=== PATIENT | male | born 1965 | race Caucasian/White ===

== ENCOUNTER 2017-06-18 23:39 | Emergency (ER) | payer OTHER ==
[2017-06-19 00:20] VITALS: BP 169/117; PULSE 112; TEMP 98.4; BMI 29.1
--- NOTE | 2017-06-19 00:40 | PDOC ---
History of Present Illness - General Chief Complaint: Oral Ulcers Stated Complaint: Abscess Boil Time Seen by Provider: 06/19/17 00:17 History Source: Patient Exam Limitations: No Limitations - History of Present Illness Initial Comments: 06/19/17 00:38 Best Contact: Pmhx: Pshx: Allergies: NO BLOOD THINNERS 51-year-old male presents to the emergency department with his complaining of bleeding to the gums on the right lower second molar 2 hours after eating soup and a sandwich. Patient states he is not on any blood thinners. Patient denies pain, nausea/vomiting, fever/chills. Patient denies any other complaints. Timing/Duration: 1-3 hours Past History - Past Medical History Allergies/Adverse Reactions: Allergies Allergy/AdvReac Type Severity Reaction Status Date / Time No Known Allergies Allergy Verified 06/19/17 00:17 Home Medications: Ambulatory Orders Cephalexin [Keflex] 500 mg PO BID #9 capsule 06/19/17 - Suicide/Smoking/Psychosocial Hx Smoking History: Never smoked Have you smoked in the past 12 months: No Information on smoking cessation initiated: No Hx Alcohol Use: No Drug/Substance Use Hx: No Review of Systems - Review of Systems Able to Perform ROS?: Yes Comments:: 06/19/17 00:36 CONSTITUTIONAL: Absent: fever, chills, diaphoresis, generalized weakness, malaise, loss of appetite HEENT: +right lower 2nd molar gum bleeding Absent: rhinorrhea, nasal congestion, throat pain, throat swelling, difficulty swallowing, mouth swelling, ear pain, eye pain, visual Changes SKIN: Absent: rash, itching, pallor HEMATOLOGIC/IMMUNOLOGIC: Absent: easy bleeding, easy bruising, lymphadenopathy, frequent infections ENDOCRINE: Absent: unexplained weight gain, unexplained weight loss, heat intolerance, cold intolerance Is the patient limited Green[place]ic proficient: No *Physical Exam - Vital Signs Last Vital Signs Temp Pulse Resp BP Pulse Ox 98.4 F 112 H 14 169/117 97 06/19/17 00:18 06/19/17 00:18 06/19/17 00:18 06/19/17 00:18 06/19/17 00:18 - Physical Exam Comments: 06/19/17 00:37 GENERAL: Well developed, well nourished. Awake and alert. No acute distress. HEENT: Right 2nd molar lower gum abrasion +bleeding Normocephalic, atraumatic. PERRLA, EOMI. No conjunctival pallor. Sclera are non- icteric. Moist mucous membranes. Oropharynx is clear. SKIN: Warm and dry. Normal capillary refill. No rashes. No jaundice. *DC/Admit/Observation/Transfer Diagnosis at time of Disposition: Abrasion of gum Qualifiers: Encounter type: initial encounter Qualified Code(s): S00.512A - Abrasion of oral cavity, initial encounter - Discharge Dispostion Disposition: HOME Condition at time of disposition: Stable Admit: No - Prescriptions Prescriptions: Cephalexin [Keflex] 500 mg PO BID #9 capsule - Referrals Referrals: Linnette Jordan [Primary Care Provider] - Jens Wolf MD [Staff Physician] - - Patient Instructions Printed Discharge Instructions: DI for Abrasion Additional Instructions: Antibiotics as prescribed until complete Return to the ER for severe/persistent/worsening symptoms Follow up with the dentist [facility] [phone] [place]: [phone] Sunday through Sunday: 4 PM to 9 PM Sunday and Sunday 9 AM to 5 PM - Post Discharge Activity
[2017-06-19] MEDS ORDERED: CEPHALEXIN MONOHYDRATE 500 MG CAPSULE (UD) PO ONE (00:56)
[2017-06-19] MEDS ORDERED: CEPHALEXIN MONOHYDRATE 500 MG CAPSULE (UD) ONE (00:59)
== END 2017-06-19 01:03 | disposition home or self-care (01) ==
LOC: JERFT 23:39 → JER 23:39 → JERFT 06-19 01:03
DX: S00.512A Abrasion of oral cavity, initial encounter (principal); X58.XXXA Exposure to other specified factors, initial encounter; Y93.89 Activity, other specified; Y92.89 Other specified places as the place of occurrence of the external cause; Y99.8 Other external cause status
CPT/HCPCS: 99281-25

== ENCOUNTER 2023-05-10 14:19 | Observation (INO) | payer OTHER ==
[2023-05-10] MEDS ORDERED: ONDANSETRON 4 MG/2 ML VIAL ONE (15:00)
[2023-05-10] MEDS: FAMOTIDINE 20 MG/50 ML IVPB 20 MG/50 ML MG IVPB ONE (15:01)
[2023-05-10] MEDS: SODIUM CHLORIDE 1,000 ML IV STA (15:01)
[2023-05-10] MEDS ORDERED: FAMOTIDINE 20 MG/50 ML IVPB 20 MG/50 ML MG IVPB ONE (15:01)
[2023-05-10] MEDS: ONDANSETRON 4 MG/2 ML VIAL IVPUSH ONE (15:02)
[2023-05-10 15:05] LABS: HEMATOCRIT 35.8 % (35.4-49); HEMOGLOBIN 12.2 GM/dL (11.7-16.9); LYMPH % 14.9 % (8-40); MCH 32.2 pg (25.7-33.7); MCHC 34.2 g/dl (32.0-35.9); MEAN CELL VOLUME 94.1 fl (80-96); MEAN PLT VOLUME 8.4 fl (7.5-11.1); MONO % 6.9 % (3.8-10.2); NEUT % 76.2 % (42.8-82.8); PLATELET COUNT 190 10^3/uL (134-434); RDW 14.3 % (11.9-15.9); WHITE BLOOD COUNT 9.5 K/mm3 (4.0-10.0)
[2023-05-10] MEDS ORDERED: HYDROCHLOROTHIAZIDE 25 MG TABLET (FP) ONE (15:07)
[2023-05-10 15:08] LABS: EPI CELLS 5 /uL (0-25.1); HYALINE CASTS 1 /uL (0-3.1); PH,URINE 5.5 (5.0-8.0); URINE APPEARANCE CLEAR; URINE BILIRUBIN 2+ (NEGATIVE); URINE COLOR ORANGE; URINE GLUCOSE (UA) NEGATIVE (NEGATIVE); URINE KETONE 1+ (NEGATIVE); URINE LEUK ESTERASE 1+ (NEGATIVE); URINE NITRITE POSITIVE (NEGATIVE); URINE PROTEIN 1+ (NEGATIVE); URINE RBC 7 /uL (0-23.9); URINE WBC 9 /uL (0-25.8)
[2023-05-10] MEDS ORDERED: LISINOPRIL 20 MG TABLET ONE (15:08)
[2023-05-10 15:09] LABS: INR 1.18 (0.83-1.09); PROTHROMBIN TIME (PATIENT) 13.7 SEC (9.7-13.0)
[2023-05-10] MEDS: HYDROCHLOROTHIAZIDE 25 MG TABLET (FP) PO ONE (15:09)
[2023-05-10] MEDS: LISINOPRIL 20 MG TABLET PO ONE (15:09)
[2023-05-10 15:12] LABS: ACTIVATED PTT 28.2 SECONDS (25.2-36.5)
[2023-05-10] MEDS ORDERED: ACETAMINOPHEN INJECTION 100 ML IVPB ONE (15:25)
[2023-05-10] MEDS ORDERED: PANTOPRAZOLE 40 MG TABLET PO ONE (15:27)
[2023-05-10] MEDS: LACTATED RINGERS SOLUTION 1,000 ML/1,000 ML INFUS.BAG IV STA (15:28)
[2023-05-10] MEDS: PANTOPRAZOLE 40 MG TABLET PO ONE (15:28)
[2023-05-10] MEDS: ACETAMINOPHEN 1000 MG/100 ML BAG IVPB ONE (15:28)
[2023-05-10 15:33] LABS: POTASSIUM 3.5 mmol/L (3.5-5.1)
[2023-05-10 15:36] LABS: CALCIUM 8.3 mg/dL (8.5-10.1)
[2023-05-10 15:37] LABS: ALBUMIN 3.6 g/dl (3.4-5.0); BLOOD UREA NITROGEN 17.6 mg/dL (7-18); MAGNESIUM 1.3 mg/dL (1.8-2.4)
[2023-05-10 15:40] LABS: CREATININE 1.3 mg/dL (0.55-1.3)
[2023-05-10 15:41] LABS: BILIRUBIN,TOTAL 1.3 mg/dL (0.2-1); TOT PROT 7.3 g/dl (6.4-8.2)
[2023-05-10 15:55] LABS: URINE BACTERIA 3 /uL (0-1359)
[2023-05-10] MEDS ORDERED: MAGNESIUM SULFATE IN WATER 2 GM/50 ML IVPB IVPB ONE (16:46)
[2023-05-10] MEDS ORDERED: MAG HYDROX/AL HYDROX/SIMETH 30 ML UNIT-DOSE CUP ONE (16:46)
[2023-05-10] MEDS ORDERED: KETOROLAC TROMETHAMINE 30 MG/1 ML VIAL ONE (16:46)
[2023-05-10] MEDS: KETOROLAC TROMETHAMINE 30 MG/1 ML VIAL IVPUSH ONE (16:48)
[2023-05-10] MEDS: MAG HYDROX/AL HYDROX/SIMETH 30 ML UNIT-DOSE CUP PO ONE (16:48)
[2023-05-10] MEDS: MAGNESIUM SULFATE IN WATER 2 GM/50 ML IVPB IVPB ONE (16:56)
[2023-05-10] MEDS ORDERED: CEFTRIAXONE 1 GM/50 ML BAG ONE (17:46)
[2023-05-10] MEDS: CEFTRIAXONE 1 GM in DEXTROSE 5%-WATER - 100 ML IVPB ONE (19:00)
[2023-05-10] MEDS: CEFTRIAXONE 1,000 MG in DEXTROSE 5%-WATER - 50 ML IVPB ONE (20:10)
[2023-05-10] MEDS: DEXTROSE 5%-NORMAL SALINE 1,000 ML IV SCH (21:29)
[2023-05-11 01:29] VITALS: BMI 30.1
[2023-05-11] MEDS: ENOXAPARIN NA (PORCINE) 40 MG/0.4 ML DISP.SYRIN SQ SCH (09:43)
[2023-05-11] MEDS: LISINOPRIL 20 MG TABLET PO SCH (09:43)
[2023-05-11] MEDS: HYDROCHLOROTHIAZIDE 25 MG TABLET (FP) PO SCH (09:43)
[2023-05-11 10:18] LABS: BASO % 1.8 % (0-2.0); EOS % 2.7 % (0-4.5); HEMATOCRIT 32.5 % (35.4-49); HEMOGLOBIN 10.9 GM/dL (11.7-16.9); LYMPH % 16.4 % (8-40); MCH 32.2 pg (25.7-33.7); MCHC 33.5 g/dl (32.0-35.9); MEAN CELL VOLUME 96.4 fl (80-96); MONO % 7.5 % (3.8-10.2); NEUT % 71.6 % (42.8-82.8); PLATELET COUNT 165 10^3/uL (134-434); RBC 3.38 M/mm3 (4.00-5.60); RDW 14.1 % (11.9-15.9); WHITE BLOOD COUNT 5.3 K/mm3 (4.0-10.0)
[2023-05-11 10:28] LABS: POTASSIUM 3.2 mmol/L (3.5-5.1)
[2023-05-11 10:37] LABS: CALCIUM 8.4 mg/dL (8.5-10.1)
[2023-05-11 10:39] LABS: ALBUMIN 3.2 g/dl (3.4-5.0); MAGNESIUM 1.4 mg/dL (1.8-2.4)
[2023-05-11 10:42] LABS: CREATININE 1.1 mg/dL (0.55-1.3)
[2023-05-11 10:43] LABS: BILIRUBIN,TOTAL 0.7 mg/dL (0.2-1); TOT PROT 6.8 g/dl (6.4-8.2)
[2023-05-11] MEDS: CEFTRIAXONE 1 GM in DEXTROSE 5%-WATER - 50 ML IVPB SCH (11:08)
[2023-05-11] MEDS: SUCRALFATE 1 GM/10 ML UNIT DOSE CUPS PO SCH (17:13)
[2023-05-11] MEDS: POTASSIUM CHLORIDE ORAL LIQUID 20 MEQ/15 ML PO ONE (17:13)
[2023-05-11] MEDS: PANTOPRAZOLE SODIUM 40 MG VIAL IVPUSH SCH (22:25)
[2023-05-12 08:14] LABS: BASO % 1.3 % (0-2.0); EOS % 3.5 % (0-4.5); HEMATOCRIT 32.4 % (35.4-49); HEMOGLOBIN 11.1 GM/dL (11.7-16.9); MCH 32.8 pg (25.7-33.7); MCHC 34.3 g/dl (32.0-35.9); MEAN CELL VOLUME 95.7 fl (80-96); MEAN PLT VOLUME 8.9 fl (7.5-11.1); NEUT % 67.2 % (42.8-82.8); PLATELET COUNT 162 10^3/uL (134-434); RBC 3.39 M/mm3 (4.00-5.60); RDW 13.8 % (11.9-15.9)
[2023-05-12 08:40] LABS: POTASSIUM 3.3 mmol/L (3.5-5.1)
[2023-05-12 09:18] LABS: CALCIUM 8.2 mg/dL (8.5-10.1)
[2023-05-12 09:19] LABS: ALBUMIN 3.1 g/dl (3.4-5.0); BLOOD UREA NITROGEN 3.7 mg/dL (7-18); MAGNESIUM 1.4 mg/dL (1.8-2.4)
[2023-05-12 09:23] LABS: TOT PROT 6.6 g/dl (6.4-8.2)
[2023-05-12 09:24] LABS: BILIRUBIN,TOTAL 0.4 mg/dL (0.2-1)
[2023-05-12] MEDS: MAGNESIUM OXIDE 400 MG TABLET (FP) PO ONE (10:39)
[2023-05-12] MEDS: POTASSIUM CHLORIDE ORAL LIQUID 20 MEQ/15 ML PO ONE (10:39)
[2023-05-13 09:42] LABS: EOS % 3.3 % (0-4.5); HEMATOCRIT 34.6 % (35.4-49); HEMOGLOBIN 11.5 GM/dL (11.7-16.9); LYMPH % 17.4 % (8-40); MCH 31.9 pg (25.7-33.7); MCHC 33.2 g/dl (32.0-35.9); MEAN CELL VOLUME 96.2 fl (80-96); MEAN PLT VOLUME 8.8 fl (7.5-11.1); MONO % 7.6 % (3.8-10.2); NEUT % 70.7 % (42.8-82.8); PLATELET COUNT 166 10^3/uL (134-434); RBC 3.59 M/mm3 (4.00-5.60); RDW 14.3 % (11.9-15.9); WHITE BLOOD COUNT 5.1 K/mm3 (4.0-10.0)
[2023-05-13 10:03] LABS: CHLORIDE 105 mmol/L (98-107); POTASSIUM 3.5 mmol/L (3.5-5.1); SODIUM 140 mmol/L (136-145)
[2023-05-13 10:30] LABS: ALBUMIN 3.3 g/dl (3.4-5.0); ANION GAP 6 mmol/L (4-13); CALCIUM 8.4 mg/dL (8.5-10.1); CO2 29 mmol/L (21-32); GLUCOSE,RANDOM 146 mg/dL (74-106); MAGNESIUM 1.4 mg/dL (1.8-2.4)
[2023-05-13 10:32] LABS: SGPT/ALT 25 U/L (13-61)
[2023-05-13 10:34] LABS: BILIRUBIN,TOTAL 0.4 mg/dL (0.2-1); SGOT/AST 35 U/L (15-37)
[2023-05-13 10:35] LABS: ALK PHOS 84 U/L (45-117)
[2023-05-13 10:37] LABS: BLOOD UREA NITROGEN 2.5 mg/dL (7-18)
[2023-05-13 15:14] VITALS: RESP 18
[2023-05-13] MEDS: MAGNESIUM SULF 50% (8.12 MEQ/2 ML-1 GM VIAL) IVPB ONE (22:37)
[2023-05-13] MEDS: MAGNESIUM 2GM/50ML STERILE WATER IVPB IVPB ONE (22:37)
[2023-05-14 10:10] LABS: POTASSIUM 3.4 mmol/L (3.5-5.1)
[2023-05-14 10:18] LABS: CALCIUM 8.9 mg/dL (8.5-10.1)
[2023-05-14 10:20] LABS: ALBUMIN 3.2 g/dl (3.4-5.0); BLOOD UREA NITROGEN 3.1 mg/dL (7-18)
[2023-05-14 10:25] LABS: BILIRUBIN,TOTAL 0.3 mg/dL (0.2-1)
[2023-05-14] MEDS: POTASSIUM CHLORIDE ORAL LIQUID 20 MEQ/15 ML PO ONE (11:56)
[2023-05-14] MEDS: METOCLOPRAMIDE HCL 10 MG TABLET (FP) PO SCH (11:57)
[2023-05-14 13:06] VITALS: BP 120/72; PULSE 76; TEMP 98.9
[2023-05-14] MEDS ORDERED: metroNIDAZOLE 250 MG TABLET PO SCH (14:00)
[2023-05-14] MEDS ORDERED: PANTOPRAZOLE 40 MG TABLET PO SCH (22:00)
[2023-05-14] MEDS ORDERED: CIPROFLOXACIN 500 MG TABLET (RESTRICTED TO ID) PO SCH (22:00)
[2023-05-15 16:09] LABS: DRVVT - 34.5 sec (0.0-47.0)
== END 2023-05-14 13:52 | disposition home or self-care (01) ==
LOC: JER 14:19 → JERBED 17:02 → J8W 19:41
PROVIDERS: ADMIT Internal Medicine; ATTEND Nurse Practitioner Family
PROC: 3E033NZ Introduction of Analgesics, Hypnotics, Sedatives into Peripheral Vein, Percutaneous Approach (ICD-10-PCS; principal; 2023-05-10)
PROC: 3E03329 Introduction of Other Anti-infective into Peripheral Vein, Percutaneous Approach (ICD-10-PCS; 2023-05-10)
PROC: 3E023GC Introduction of Other Therapeutic Substance into Muscle, Percutaneous Approach (ICD-10-PCS; 2023-05-10)
PROC: 3E033GC Introduction of Other Therapeutic Substance into Peripheral Vein, Percutaneous Approach (ICD-10-PCS; 2023-05-10)
PROC: 3E0333Z Introduction of Anti-inflammatory into Peripheral Vein, Percutaneous Approach (ICD-10-PCS; 2023-05-10)
PROC: 3E0337Z Introduction of Electrolytic and Water Balance Substance into Peripheral Vein, Percutaneous Approach (ICD-10-PCS; 2023-05-10)
DX: K52.9 Noninfective gastroenteritis and colitis, unspecified (principal); I10 Essential (primary) hypertension; R10.13 Epigastric pain; R18.8 Other ascites; Z90.49 Acquired absence of other specified parts of digestive tract
CPT/HCPCS: 36415; 71046-TC-FY; 71260-TC; 74018-TC-FY; 74177-TC; 80053; 81003; 81240; 81241; 83605; 83690; 83735; 83993; 84100; 84484; 85025; 85303; 85610; 85613; 85651; 85730; 85732; 86140; 87045; 87046; 87086; 87209; 87324; 87449; 93005; 93010; 96361; 96365; 96366; 96367; 96368; 96372; 96375; 99285-25; G0378; J0131; Q9967